=== PATIENT | female | born 1990 | race Caucasian/White ===

== ENCOUNTER 2018-05-30 11:19 | Emergency (ER) | payer BC ==
[~2018-05-30] VITALS: Ht 170.2 cm; Wt 74.8 kg
[2018-05-30 11:30] VITALS: BP_SYST 137
[2018-05-30 13:54] LABS: BASOPHILS # (AUTO) 0.1 K/uL (0.0-0.2); BASOPHILS % (AUTO) 0.7 % (0.0-2.0); EOSINOPHILS % (AUTO) 0.4 % (0.0-4.0); HEMATOCRIT 44.1 % (36-48); HEMOGLOBIN 14.9 g/dL (12.0-16.0); LYMPHOCYTES # (AUTO) 2.1 K/uL (1.0-5.5); LYMPHOCYTES % (AUTO) 25.6 % (20.5-51.5); MEAN CORPUSCULAR HEMOGLOBIN 31 pg (27-31); MEAN CORPUSCULAR HGB CONC 34 % (32-36); MEAN CORPUSCULAR VOLUME 91 fL (79.0-98.0); MONOCYTES # (AUTO) 0.4 K/uL (0.0-1.0); MONOCYTES % (AUTO) 5.3 % (1.7-9.3); NEUTROPHILS # (AUTO) 5.5 K/uL (1.8-7.7); PLATELET COUNT (AUTO) 330 K/uL (130-430); RED BLOOD CELL COUNT(AUTO) 4.86 MIL/uL (4.2-6.2); RED CELL DISTRIBUTION WIDTH 13.1 % (9.0-15.0); WHITE BLOOD COUNT (AUTO) 8.1 K/uL (4.8-10.8)
[2018-05-30 14:01] VITALS: BP_SYST 110
== END 2018-05-30 14:00 | disposition home or self-care (01) ==
LOC: SED 11:19
DX: O03.9 Complete or unspecified spontaneous abortion without complication (principal); R03.0 Elevated blood-pressure reading, without diagnosis of hypertension
CPT/HCPCS: 36415; 76830-TC; 76857; 81025; 84702-TC; 85025; 86900; 86901; 99284

== ENCOUNTER 2018-09-12 08:37 | Emergency (ER) | payer BC ==
[~2018-09-12] VITALS: Ht 170.2 cm; Wt 79.4 kg
[2018-09-12 08:37] VITALS: BP_SYST 135
--- NOTE | 2018-09-12 08:40 | NUR ---
Patient triaged and placed in waiting room. VSS and patient appears in no acute distress at this time. Accompanied by SPOUSE, awaiting available bed, and MD notified of need for MSE.
[2018-09-12 09:11] LABS: BASOPHILS % (AUTO) 0.6 % (0.0-2.0); EOSINOPHILS # (AUTO) 0.1 K/uL (0.0-0.4); EOSINOPHILS % (AUTO) 2.1 % (0.0-4.0); HEMATOCRIT 42.9 % (36-48); HEMOGLOBIN 14.3 g/dL (12.0-16.0); LYMPHOCYTES # (AUTO) 1.8 K/uL (1.0-5.5); LYMPHOCYTES % (AUTO) 25.5 % (20.5-51.5); MEAN CORPUSCULAR HEMOGLOBIN 30 pg (27-31); MEAN CORPUSCULAR HGB CONC 33 % (32-36); MEAN CORPUSCULAR VOLUME 91 fL (79.0-98.0); MONOCYTES # (AUTO) 0.4 K/uL (0.0-1.0); MONOCYTES % (AUTO) 6.3 % (1.7-9.3); NEUTROPHILS # (AUTO) 4.6 K/uL (1.8-7.7); NEUTROPHILS % (AUTO) 65.5 % (40.0-70.0); PLATELET COUNT (AUTO) 319 K/uL (130-430); RED CELL DISTRIBUTION WIDTH 12.9 % (9.0-15.0); WHITE BLOOD COUNT (AUTO) 7.1 K/uL (4.8-10.8)
--- NOTE | 2018-09-12 09:18 | NUR ---
BROUGHT BACK TO BED #6 AND REPORT GIVEN TO YUKI
--- NOTE | 2018-09-12 09:25 | NUR ---
DR MCCLURE AT BEDSIDE FOR EVALUATION
--- NOTE | 2018-09-12 09:30 | NUR ---
PATIENT LEAVING TO [facility] SOUND IN STABLE CONDITION.
--- NOTE | 2018-09-12 09:53 | NUR ---
PATIENT BACK FROM [facility] IN STABLE CONDITION. PATIENT RESTING IN BED.
--- NOTE | 2018-09-12 09:54 | NUR ---
PATIENT CAME IN BECAUSE SHE HAS VAGINAL BLEEDING SINCE THE . PATIENT COMPLAINING OF SHARP NON RADIATING PAIN OF ABD 10/29. PATIENT SAID SHE FOUND OUT SHE WAS PREGNAT MONDAY AND IS ABOUT 5-6 WEEKS PREGNAT. PATIENT SAID IT IS POSSIBLE EPTOPIC PREGNACY. PATIENT NOT COMPLAINING OF SOB, NAUSEA, OR VOMITING. PATIENT ALERT AND ORIENTED X4. SIGNIFICANT OTHER AT BEDSIDE.
[2018-09-12] MEDS ORDERED: metHOTREXATe PF 50 MG/2 ML VIAL (25 MG/ML) IM ONE ×3 (11:00→12:15)
[2018-09-12 11:03] LABS: CALCIUM 9.4 mg/dL (8.4-11.0); CREATININE 0.94 mg/dL (0.55-1.30); POTASSIUM 4.1 mmol/L (3.5-5.1)
[2018-09-12 11:08] LABS: ALBUMIN 3.6 g/dL (3.4-4.8); TOTAL BILIRUBIN 0.7 mg/dL (0.0-1.0)
[2018-09-12] MEDS ORDERED: COMMUNICATION ORDER XX ONE (11:30)
[2018-09-12 12:51] VITALS: BP_SYST 134
--- NOTE | 2018-09-12 12:51 | NUR ---
Patient given written and verbal discharge instructions and verbalizes understanding. ER MD discussed with patient the results and treatment provided. Patient in stable condition. ID arm band removed. NO Rx given. Patient educated on pain management and to follow up with PMD. Pain Scale 4/10 TOLERABLE. Opportunity for questions provided and answered. Medication side effect fact sheet provided.
== END 2018-09-12 12:51 | disposition home or self-care (01) ==
LOC: SED 08:37
DX: O26.891 Other specified pregnancy related conditions, first trimester (principal); R10.9 Unspecified abdominal pain; Z3A.01 Less than 8 weeks gestation of pregnancy
CPT/HCPCS: 36415; 76801; 76817; 80053; 84702; 85025; 96372; 99284; J9260